=== PATIENT | male | born 1975 ===

== ENCOUNTER 2023-05-20 10:40 | Emergency (ER) | payer BC ==
[2023-05-20 10:53] VITALS: BP 140/90; PULSE 73; RESP 16; TEMP 98.4; BMI 25.7
[2023-05-20 11:37] LABS: HEMATOCRIT 49.3 % (35.4-49); MCH 27.5 pg (25.7-33.7); MCHC 32.4 g/dl (32.0-35.9); MEAN CELL VOLUME 85.1 fl (80-96); MEAN PLT VOLUME 8.8 fl (7.5-11.1); PLATELET COUNT 150.3 10^3/uL (134-434); RBC 5.79 10^6/uL (4.00-5.60); RDW 16.1 % (11.9-15.9); WHITE BLOOD COUNT 4.9 10^3/uL (4.0-10.8)
[2023-05-20 11:54] LABS: BILIRUBIN,TOTAL 0.6 mg/dl (0.2-1); CREATININE 1.1 mg/dl (0.6-1.3); POTASSIUM 4.3 mmol/L (3.5-5.1); TOT PROT 7.4 g/dl (6.4-8.2)
== END 2023-05-20 13:37 | disposition home or self-care (01) ==
LOC: FER 10:40
DX: R35.0 Frequency of micturition (principal); N20.0 Calculus of kidney; K40.00 Bilateral inguinal hernia, with obstruction, without gangrene, not specified as recurrent; K75.3 Granulomatous hepatitis, not elsewhere classified
CPT/HCPCS: 36415; 74176-TC; 80053; 81003; 81015; 85027; 87086; 99284-25